=== PATIENT | female | born 1950 | race African-American/Black ===

== ENCOUNTER 2018-09-24 14:32 | Emergency (ER) | payer MEDICARE, MEDICAID ==
[~2018-09-24] VITALS: Ht 160 cm; Wt 60.0 kg
[~2018-09-24 14:32] MED LIST: AMLO5TAB4; ESTR0.6264; FLUO-124; GABA300C; LORA-249; LOSA25TA3; OLME1TAB30; OMEP20TA15; PHENDM; S350; ZOLP10TA2
[2018-09-24 15:06] LABS: BASOPHILS % 0.5 % (0.0-2.0); EOSINOPHILS % 0.7 % (0.0-5.0); HEMATOCRIT. 37.1 % (36.0-48.0); HEMOGLOBIN. 12.3 g/dL (12.0-16.0); LYMPHOCYTES % 27.9 % (20.0-50.0); MEAN CORPUSCULAR HEMOGLOBIN 32.7 pg (28.0-32.0); MEAN CORPUSCULAR VOLUME 98.5 fL (81.0-99.0); MEAN PLATELET VOLUME 9.1 fl (7.4-10.4); MONOCYTES % 9.2 % (2.0-8.0); NEUTROPHILS % 61.7 % (40.0-76.0); PLATELET 160 x1000/uL (130-400); RED BLOOD CELL COUNT 3.76 mill/uL (4.2-5.4); RED CELL DISTRIBUTION WIDTH 15.7 % (11.6-14.6)
[2018-09-24 15:09] LABS: CHLORIDE 111 mEq/L (98-107)
[2018-09-24 15:10] LABS: INR 0.9; PROTHROMBIN TIME 9.2 sec (9.6-11.0)
[2018-09-24 15:44] LABS: CLARITY URINE CLEAR (CLEAR); COLOR URINE YELLOW (YELLOW); KETONES URINE NEGATIVE (NEGATIVE); LEUKOCYTE ESTERASE URINE NEGATIVE (NEGATIVE); NITRITE URINE NEGATIVE (NEGATIVE); OCCULT BLOOD URINE NEGATIVE (NEGATIVE); PROTEIN URINE NEGATIVE (NEGATIVE); SPECIFIC GRAVITY URINE 1.016 (1.005-1.030); UROBILINOGEN URINE 0.2 E.U./dL (0.2-1.0)
[2018-09-24] MEDS ORDERED: ONDANSETRON HCL 4MG/2ML INJ IV ONE (15:45)
[2018-09-24] MEDS ORDERED: SODIUM CHLORIDE 0.9% 1,000 ML IV ONE (15:45)
[2018-09-24] MEDS ORDERED: KETOROLAC 15MG/ML VIAL IV ONE (15:45)
[2018-09-24] MEDS ORDERED: FENTANYL CITRATE/PF 50MCG/ML 2ML VIAL IV ONE (16:45)
[2018-09-24 17:10] VITALS: BP 147/63
== END 2018-09-24 17:34 | disposition home or self-care (01) ==
LOC: ER 14:32
DX: R10.31 Right lower quadrant pain (principal); I10 Essential (primary) hypertension; F14.10 Cocaine abuse, uncomplicated; F15.10 Other stimulant abuse, uncomplicated; F17.210 Nicotine dependence, cigarettes, uncomplicated
CPT/HCPCS: 36415; 80053; 81003; 83690; 85025; 85610; 96374; 96375; 99283; J1885; J2405; J3010; J7030

== ENCOUNTER 2018-09-28 11:13 | Emergency (ER) | payer MEDICARE, MEDICAID ==
[~2018-09-28] VITALS: Ht 172.7 cm; Wt 76.0 kg
[2018-09-28] MEDS ORDERED: SODIUM CHLORIDE 0.9% 1,000 ML IV ONE (11:34)
[2018-09-28] MEDS ORDERED: KETOROLAC 30MG/ML VIAL IV STA (11:34)
[2018-09-28 11:59] LABS: BASOPHILS % 0.7 % (0.0-2.0); CHLORIDE 108 mEq/L (98-107); EOSINOPHILS % 0.3 % (0.0-5.0); HEMATOCRIT. 37.7 % (36.0-48.0); HEMOGLOBIN. 12.7 g/dL (12.0-16.0); LYMPHOCYTES % 25.1 % (20.0-50.0); MEAN CORPUSCULAR HEMOGLOBIN 32.9 pg (28.0-32.0); MEAN CORPUSCULAR VOLUME 97.8 fL (81.0-99.0); MEAN PLATELET VOLUME 9.2 fl (7.4-10.4); MONOCYTES % 10.3 % (2.0-8.0); NEUTROPHILS % 63.6 % (40.0-76.0); PLATELET 189 x1000/uL (130-400); RED BLOOD CELL COUNT 3.86 mill/uL (4.2-5.4); RED CELL DISTRIBUTION WIDTH 15.3 % (11.6-14.6)
[2018-09-28 12:09] LABS: CLARITY URINE CLOUDY (CLEAR); COLOR URINE YELLOW (YELLOW); KETONES URINE TRACE (NEGATIVE); LEUKOCYTE ESTERASE URINE 1+ (NEGATIVE); NITRITE URINE NEGATIVE (NEGATIVE); OCCULT BLOOD URINE NEGATIVE (NEGATIVE); PH URINE 6.5 (4.5-8.0); PROTEIN URINE NEGATIVE (NEGATIVE); SPECIFIC GRAVITY URINE 1.023 (1.005-1.030)
[2018-09-28 12:19] LABS: *AMPHETAMINES SCREEN URINE NEGATIVE (NEGATIVE)
[2018-09-28 12:20] LABS: *BARBITURATES SCREEN URINE NEGATIVE (NEGATIVE); *BENZODIAZEPINES SCREEN URINE NEGATIVE (NEGATIVE); *COCAINE SCREEN URINE PRESUMTIVE POSITIVE (NEGATIVE); CANNABINOID URINE SCREEN NEGATIVE (NEGATIVE); METHADONE URINE SCREEN NEGATIVE (NEGATIVE); OPIATES URINE SCREEN PRESUMTIVE POSITIVE (NEGATIVE); PHENCYCLIDINE URINE SCREEN NEGATIVE (NEGATIVE)
[2018-09-28 13:40] VITALS: BP 149/81
== END 2018-09-28 13:55 | disposition home or self-care (01) ==
LOC: ER 12:41
DX: N12 Tubulo-interstitial nephritis, not specified as acute or chronic (principal); J44.9 Chronic obstructive pulmonary disease, unspecified; F32.9 Major depressive disorder, single episode, unspecified; K21.9 Gastro-esophageal reflux disease without esophagitis; I10 Essential (primary) hypertension; F14.10 Cocaine abuse, uncomplicated; F15.10 Other stimulant abuse, uncomplicated; Z79.899 Other long term (current) drug therapy
CPT/HCPCS: 36415; 80053; 80305; 81003; 85025; 96374; 99283; J1885; J7030

== ENCOUNTER 2019-10-01 14:41 | Inpatient (IN) | payer MEDICARE, MEDICAID ==
[~2019-10-01] VITALS: Ht 172.7 cm; Wt 77.6 kg
[~2019-10-01 14:41] MED LIST changes: +CARI350T28; -FLUO-124; +FLUO20CA39; -S350
[2019-10-01] MEDS ORDERED: KETOROLAC 30MG/ML VIAL IV STA (14:58)
[2019-10-01] MEDS ORDERED: ONDANSETRON HCL 4MG/2ML INJ IV STA (14:58)
[2019-10-01] MEDS ORDERED: SODIUM CHLORIDE 0.9% 1,000 ML IV ONE (14:58)
[2019-10-01] MEDS ORDERED: CEFTRIAXONE 1 G PREMIX 50 ML IV ONE (15:00)
[2019-10-01 15:47] LABS: CHLORIDE 100 mEq/L (98-107)
[2019-10-01 15:49] LABS: BASOPHILS % 0.4 % (0.0-2.0); EOSINOPHILS % 0.1 % (0.0-5.0); HEMATOCRIT. 37.3 % (36.0-48.0); HEMOGLOBIN. 12.9 g/dL (12.0-16.0); LYMPHOCYTES % 18.8 % (20.0-50.0); MEAN CORPUSCULAR HEMOGLOBIN 34.3 pg (28.0-32.0); MEAN CORPUSCULAR VOLUME 99.2 fL (81.0-99.0); MEAN PLATELET VOLUME 9.6 fl (7.4-10.4); MONOCYTES % 8.4 % (2.0-8.0); NEUTROPHILS % 72.3 % (40.0-76.0); PLATELET 176 x1000/uL (130-400); RED BLOOD CELL COUNT 3.76 mill/uL (4.2-5.4); RED CELL DISTRIBUTION WIDTH 15.3 % (11.6-14.6)
[2019-10-01 16:38] LABS: CLARITY URINE CLEAR (CLEAR); COLOR URINE YELLOW (YELLOW); KETONES URINE NEGATIVE (NEGATIVE); LEUKOCYTE ESTERASE URINE NEGATIVE (NEGATIVE); NITRITE URINE POSITIVE (NEGATIVE); OCCULT BLOOD URINE NEGATIVE (NEGATIVE); PH URINE 6.5 (4.5-8.0); PROTEIN URINE NEGATIVE (NEGATIVE); SPECIFIC GRAVITY URINE 1.006 (1.005-1.030); UROBILINOGEN URINE 0.2 E.U./dL (0.2-1.0)
[2019-10-01] MEDS ORDERED: ONDANSETRON HCL 4MG/2ML INJ IV PRN (20:30)
[2019-10-01] MEDS ORDERED: AMLODIPINE 5MG TABLET PO NR (20:30)
[2019-10-01] MEDS: ACETAMINOPHEN 325MG TABLET PO PRN (22:43)
[2019-10-02] MEDS: ACETAMINOPHEN 325MG TABLET PO PRN (05:11)
[2019-10-02 08:00] VITALS: BP 141/86
[2019-10-02] MEDS: AMLODIPINE 5MG TABLET PO SCH ×2 (09:11→20:32)
[2019-10-02 09:30] VITALS: BP 141/86
[2019-10-02] MEDS: HYDROCODONE/ACETAMINOPHEN 10/325MG TABLET PO PRN ×3 (11:04→23:57)
[2019-10-02 12:00] VITALS: BP 150/95
[2019-10-02] MEDS ORDERED: IPRATROPIUM/ALBUTEROL 0.5-3(2.5)MG/3ML NEB HHN PRN (12:00)
[2019-10-02] MEDS: CEFTRIAXONE 1 G PREMIX 50 ML IV SCH (13:31)
[2019-10-02] MEDS ORDERED: CEFTRIAXONE 1 G PREMIX 50 ML IV SCH (14:00)
[2019-10-02 16:00] VITALS: BP 129/85
[2019-10-02 20:00] VITALS: BP 138/71
[2019-10-02] MEDS ORDERED: ZOLPIDEM TARTRATE 5MG TABLET PO PRN (20:15)
[2019-10-02 20:43] LABS: *BARBITURATES SCREEN URINE NEGATIVE (NEGATIVE)
[2019-10-02 20:44] LABS: *AMPHETAMINES SCREEN URINE NEGATIVE (NEGATIVE); *BENZODIAZEPINES SCREEN URINE NEGATIVE (NEGATIVE); *COCAINE SCREEN URINE PRESUMTIVE POSITIVE (NEGATIVE); CANNABINOID URINE SCREEN NEGATIVE (NEGATIVE); METHADONE URINE SCREEN NEGATIVE (NEGATIVE); OPIATES URINE SCREEN PRESUMTIVE POSITIVE (NEGATIVE)
[2019-10-02 20:46] LABS: PHENCYCLIDINE URINE SCREEN NEGATIVE (NEGATIVE)
[2019-10-03] VITALS: BP 171/91
[2019-10-03] MEDS: HYDROCODONE/ACETAMINOPHEN 10/325MG TABLET PO PRN ×3 (03:47→14:17)
[2019-10-03 04:00] VITALS: BP 116/74
[2019-10-03] MEDS ORDERED: LORAZEPAM 0.5MG TABLET PO PRN (07:00)
[2019-10-03] MEDS ORDERED: OMEPRAZOLE 20MG CAPSULE EXTENDED RELEASE PO SCH (07:20)
[2019-10-03 08:00] VITALS: BP_SYST 139; BP_DIAS 80; BP_DIAS 86
[2019-10-03] MEDS: AMLODIPINE 5MG TABLET PO SCH (08:25)
[2019-10-03] MEDS ORDERED: LOSARTAN POTASSIUM 25 MG TABLET PO SCH (09:00)
[2019-10-03] MEDS ORDERED: FLUOXETINE HCL 20MG CAPSULE PO SCH (09:00)
[2019-10-03] MEDS ORDERED: LORAZEPAM 0.5MG TABLET PO SCH (09:00)
[2019-10-03 12:00] VITALS: BP 137/84
[2019-10-03] MEDS ORDERED: LEVO500T2 MT (12:53)
[2019-10-03] MEDS ORDERED: IBUP-2030 MT (12:53)
[2019-10-03] MEDS ORDERED: HYDR-4001 MT ×2 (13:42→18:11)
[2019-10-03 14:08] VITALS: BP 137/84
[2019-10-03] MEDS: CEFTRIAXONE 1 G PREMIX 50 ML IV SCH (14:14)
[2019-10-03 15:11] VITALS: BP 137/84
== END 2019-10-03 15:27 | disposition home or self-care (01) | DRG 463 ==
LOC: ER 14:41 → 6EST 19:24 → EDBEDREQTM 19:30 → EDBEDREQ 19:30 → ENRESERV 10-02 08:45
PROVIDERS: ADMIT Internal Medicine; ATTEND Internal Medicine
DX: N12 Tubulo-interstitial nephritis, not specified as acute or chronic (principal); E87.1 Hypo-osmolality and hyponatremia; J44.9 Chronic obstructive pulmonary disease, unspecified; K76.0 Fatty (change of) liver, not elsewhere classified; F14.10 Cocaine abuse, uncomplicated; F17.210 Nicotine dependence, cigarettes, uncomplicated; F32.9 Major depressive disorder, single episode, unspecified; I10 Essential (primary) hypertension; K21.9 Gastro-esophageal reflux disease without esophagitis; Z96.651 Presence of right artificial knee joint; Z60.2 Problems related to living alone; Z79.899 Other long term (current) drug therapy
CPT/HCPCS: 36415; 71045; 73560; 74176; 76700; 80053; 80305; 81003; 85025; 97162; 99285; J0696; J1885; J2405; J7030

== ENCOUNTER 2020-06-09 14:33 | Emergency (ER) | payer MEDICARE, MEDICAID ==
[~2020-06-09] VITALS: Ht 172.7 cm; Wt 72.0 kg
[~2020-06-09 14:33] MED LIST changes: +HYDR-4001 MT; +IBUP-2030 MT; +LEVO500T2 MT
[2020-06-09 14:45] VITALS: BP 168/87
[2020-06-09] MEDS ORDERED: KETOROLAC 60MG/2ML VIAL IM ONE (16:30)
== END 2020-06-09 18:08 | disposition home or self-care (01) ==
LOC: ER 14:33
DX: M54.5 Low back pain (principal); M25.561 Pain in right knee; I10 Essential (primary) hypertension; J44.9 Chronic obstructive pulmonary disease, unspecified; Z71.9 Counseling, unspecified; F17.210 Nicotine dependence, cigarettes, uncomplicated; Z79.899 Other long term (current) drug therapy; F15.10 Other stimulant abuse, uncomplicated; F14.10 Cocaine abuse, uncomplicated; R03.0 Elevated blood-pressure reading, without diagnosis of hypertension
CPT/HCPCS: 96372; 99283; 99406; J1885

== ENCOUNTER 2021-06-06 13:25 | Emergency (ER) | payer MEDICARE, OTHER ==
[~2021-06-06] VITALS: Ht 177.8 cm; Wt 88.0 kg
[~2021-06-06 13:25] MED LIST changes: +ALBU18HF2 IH
[2021-06-06 15:33] LABS: BASOPHILS % 1.1 % (0.0-2.0); EOSINOPHILS % 0.1 % (0.0-5.0); HEMATOCRIT. 38.5 % (36.0-48.0); HEMOGLOBIN. 13.1 g/dL (12.0-16.0); LYMPHOCYTES % 13.7 % (20.0-50.0); MEAN CORPUSCULAR HEMOGLOBIN 32.5 pg (28.0-32.0); MEAN CORPUSCULAR VOLUME 95.6 fL (81.0-99.0); MEAN PLATELET VOLUME 8.5 fl (7.4-10.4); MONOCYTES % 4.5 % (2.0-8.0); NEUTROPHILS % 80.6 % (40.0-76.0); PLATELET 407 x1000/uL (130-400); RED BLOOD CELL COUNT 4.03 mill/uL (4.2-5.4); RED CELL DISTRIBUTION WIDTH 15.1 % (11.6-14.6)
[2021-06-06 15:38] LABS: CHLORIDE 103 mEq/L (98-107)
[2021-06-06 16:55] VITALS: BP 135/85
== END 2021-06-06 16:57 | disposition left against medical advice (07) ==
LOC: ER 13:25
DX: R07.89 Other chest pain (principal); F17.200 Nicotine dependence, unspecified, uncomplicated; F15.10 Other stimulant abuse, uncomplicated; F14.10 Cocaine abuse, uncomplicated; J44.1 Chronic obstructive pulmonary disease with (acute) exacerbation; I10 Essential (primary) hypertension; Z79.899 Other long term (current) drug therapy; Z98.890 Other specified postprocedural states
CPT/HCPCS: 36415; 71045; 80053; 83880; 84484; 85025; 93005; 99285

== ENCOUNTER 2021-06-07 09:14 | Emergency (ER) | payer MEDICARE, OTHER ==
[~2021-06-07] VITALS: Ht 167.6 cm; Wt 65.0 kg
[2021-06-07] MEDS ORDERED: ALBUTEROL (0.083%) 2.5MG/3ML NEB HHN STA (09:16)
[2021-06-07] MEDS ORDERED: METHYLPREDNISOLONE SOD SUCC 125 MG/2 ML VIAL IV STA (09:16)
[2021-06-07] MEDS ORDERED: IPRATROPIUM BROMIDE (0.02%) 0.5MG/2.5ML NEB HHN STA (09:16)
[2021-06-07 09:18] VITALS: BP 152/84
[2021-06-07] MEDS ORDERED: ASPIRIN 325MG EC TABLET PO ONE (09:30)
[2021-06-07 09:42] LABS: BASOPHILS % 0.9 % (0.0-2.0); EOSINOPHILS % 0.6 % (0.0-5.0); HEMATOCRIT. 35.3 % (36.0-48.0); HEMOGLOBIN. 12.4 g/dL (12.0-16.0); LYMPHOCYTES % 36.3 % (20.0-50.0); MEAN CORPUSCULAR HEMOGLOBIN 33.3 pg (28.0-32.0); MEAN CORPUSCULAR VOLUME 94.6 fL (81.0-99.0); MEAN PLATELET VOLUME 8.3 fl (7.4-10.4); MONOCYTES % 9.3 % (2.0-8.0); NEUTROPHILS % 52.9 % (40.0-76.0); PLATELET 331 x1000/uL (130-400); RED BLOOD CELL COUNT 3.73 mill/uL (4.2-5.4); RED CELL DISTRIBUTION WIDTH 15.2 % (11.6-14.6)
[2021-06-07 09:53] LABS: CHLORIDE 108 mEq/L (98-107)
== END 2021-06-07 15:12 | disposition short-term general hospital (02) ==
LOC: ER 09:24
DX: R07.89 Other chest pain (principal); F15.10 Other stimulant abuse, uncomplicated; F14.10 Cocaine abuse, uncomplicated; I10 Essential (primary) hypertension; J44.1 Chronic obstructive pulmonary disease with (acute) exacerbation; Z79.899 Other long term (current) drug therapy
CPT/HCPCS: 36415; 80053; 83880; 84484; 85025; 93005; 99285

== ENCOUNTER 2022-02-04 14:53 | Emergency (ER) | payer MEDICARE, OTHER ==
[~2022-02-04] VITALS: Ht 172.7 cm; Wt 65.0 kg
[2022-02-04] MEDS ORDERED: ACETAMINOPHEN WITH CODEINE 300/30MG TABLET PO ONE (16:00)
[2022-02-04 16:07] VITALS: BP 159/83
[2022-02-04] MEDS ORDERED: T3 PO (17:19)
[2022-02-04] MEDS ORDERED: LIDO1ADH23 TP (17:19)
[2022-02-04] MEDS ORDERED: LIDOCAINE 5% PATCH TOP SCH (18:00)
== END 2022-02-04 18:30 | disposition home or self-care (01) ==
LOC: ER 15:02
DX: M25.512 Pain in left shoulder (principal); M79.644 Pain in right finger(s); J44.9 Chronic obstructive pulmonary disease, unspecified; I10 Essential (primary) hypertension; Z90.710 Acquired absence of both cervix and uterus; Z79.899 Other long term (current) drug therapy; F14.10 Cocaine abuse, uncomplicated
CPT/HCPCS: 29125; 73030; 99283

== ENCOUNTER 2022-05-09 11:05 | Emergency (ER) | payer MEDICARE, OTHER ==
[~2022-05-09] VITALS: Ht 175.3 cm; Wt 73.0 kg
[~2022-05-09 11:05] MED LIST changes: +LIDO1ADH23 TP; +T3 PO
[2022-05-09] MEDS ORDERED: ASPIRIN 81MG TABLET PO ONE (11:30)
[2022-05-09] MEDS ORDERED: NITROGLYCERIN 0.4MG TABLET SL SL PRN (11:30)
[2022-05-09] MEDS ORDERED: SODIUM CHLORIDE 0.9% 1,000 ML IV ONE (11:30)
[2022-05-09] MEDS ORDERED: OSELTAMIVIR 75MG CAPSULE PO ONE (11:30)
[2022-05-09] MEDS ORDERED: ACETAMINOPHEN 325MG TABLET PO ONE (13:00)
[2022-05-09 13:30] LABS: BASOPHILS % 0.5 % (0.0-2.0); EOSINOPHILS % 0.9 % (0.0-5.0); LYMPHOCYTES % 30.5 % (20.0-50.0); MEAN CORPUSCULAR HEMOGLOBIN 31.4 pg (28.0-32.0); MEAN CORPUSCULAR VOLUME 93.8 fL (81.0-99.0); MEAN PLATELET VOLUME 9.6 fl (7.4-10.4); MONOCYTES % 7.4 % (2.0-8.0); NEUTROPHILS % 60.7 % (40.0-76.0); PLATELET 157 x1000/uL (130-400); RED BLOOD CELL COUNT 3.84 mill/uL (4.2-5.4); RED CELL DISTRIBUTION WIDTH 16.6 % (11.6-14.6)
[2022-05-09 13:35] LABS: CHLORIDE 106 mEq/L (98-107)
[2022-05-09 13:39] LABS: D-DIMER 0.66 mg/L FEU (<0.50); INR 0.9; PARTIAL THROMBOPLASTIN TIME 25.3 sec (23.4-31.0); PROTHROMBIN TIME 9.9 sec (9.6-11.0)
[2022-05-09] MEDS ORDERED: ACETAMINOPHEN 325MG TABLET PO SCH (15:15)
[2022-05-09] MEDS ORDERED: IOHEXOL-350 100 ML BOTTLE ONE (16:43)
[2022-05-09 20:16] VITALS: BP 132/85
== END 2022-05-09 22:24 | disposition short-term general hospital (02) ==
LOC: ER 11:05 → CANBEDREQ 15:49 → ER 22:24
DX: R07.2 Precordial pain (principal); I10 Essential (primary) hypertension; Z20.822 Contact with and (suspected) exposure to COVID-19; J44.9 Chronic obstructive pulmonary disease, unspecified
CPT/HCPCS: 36415; 71045; 71275; 80053; 83880; 84484; 85025; 85379; 85610; 85730; 87426; 87804; 93005; 96360; 99285; C9803; J7030; Q9967; Z7610

== ENCOUNTER 2024-03-12 10:13 | Emergency (ER) | payer MEDICARE, MEDICAID ==
[~2024-03-12] VITALS: Ht 172.7 cm; Wt 61.0 kg
[~2024-03-12 10:13] MED LIST changes: +FLUO-413; -FLUO20CA39; +LOSA-412; -LOSA25TA3
[2024-03-12 10:44] VITALS: O2SAT 98
[2024-03-12 10:46] VITALS: BP 118/77; PULSE 83; RESP 16; TEMP 37.05852; O2SAT 98
[2024-03-12] MEDS ORDERED: OXYCODONE HCL/ACETAMINOPHEN 5/325MG TABLET PO ONE (12:00)
[2024-03-12] MEDS ORDERED: FAMOTIDINE 20MG TABLET PO ONE (12:00)
[2024-03-12] MEDS ORDERED: MAGNESIUM/ALUMINUM HYDROXIDE/SIMETHICONE 30ML UDC PO ONE (12:00)
[2024-03-12 12:20] LABS: BASOPHILS % 1.8 % (0.0-2.0); HEMATOCRIT. 40.3 % (36.0-48.0); HEMOGLOBIN. 13.9 g/dL (12.0-16.0); LYMPHOCYTES % 39.8 % (20.0-50.0); MEAN CORPUSCULAR HGB CONC 34.5 g/dL (31.0-37.0); MEAN CORPUSCULAR VOLUME 98.5 fL (81.0-99.0); MEAN PLATELET VOLUME 9.9 fl (7.4-10.4); MONOCYTES % 10.1 % (2.0-8.0); NEUTROPHILS % 47.3 % (40.0-76.0); PLATELET 176 x1000/uL (130-400); RED BLOOD CELL COUNT 4.09 mill/uL (4.2-5.4); RED CELL DISTRIBUTION WIDTH 15.4 % (11.6-14.6)
[2024-03-12 12:26] LABS: CHLORIDE 106 mEq/L (98-107); POTASSIUM 4.6 mEq/L (3.5-5.1); SODIUM 139 mEq/L (136-145)
[2024-03-12 12:27] LABS: CALCIUM 9.3 mg/dL (8.7-10.4); CARBON DIOXIDE 28 mEq/L (21-32)
[2024-03-12 12:32] LABS: CREATININE 1.2 mg/dL (0.6-1.0); GLUCOSE 103 mg/dL (70-105); UREA NITROGEN BLOOD 23 mg/dL (9-23)
[2024-03-12 12:33] LABS: TROPONIN I HIGH SENSITIVITY 8 ng/L (3.0-34)
[2024-03-12] MEDS ORDERED: ALBU18HF2 IH (12:58)
== END 2024-03-12 14:34 | disposition left against medical advice (07) ==
LOC: ER 10:13
DX: R07.89 Other chest pain (principal); I10 Essential (primary) hypertension; J44.9 Chronic obstructive pulmonary disease, unspecified; Z79.899 Other long term (current) drug therapy; Z90.710 Acquired absence of both cervix and uterus; Z76.0 Encounter for issue of repeat prescription; Z98.890 Other specified postprocedural states
CPT/HCPCS: 36415; 71045; 80048; 83880; 84484; 85025; 93005; 99285